=== PATIENT | female | born 1995 | race Caucasian/White ===

== ENCOUNTER → 2020-04-10 11:59 | Outpatient (BNVA) | payer BC, SELFPAY | PROVIDERS: Family Provider Nurse Practitioner Family; PCP Nurse Practitioner Family; Visit Provider Nurse Practitioner Family | DX: J02.9 Acute pharyngitis, unspecified (principal) | CPT/HCPCS: 87880 ==

== ENCOUNTER 2023-05-21 07:49 | Inpatient (IN) | payer BC, MEDICAID, SELFPAY ==
[2023-05-21] VITALS (44 sets, daily range): BP systolic 114–150; BP diastolic 62–94; PULSE 50–96; RESP 16–18; TEMP 35.8–36.9; O2SAT 100; BMI 25.9
[2023-05-21] MEDS: ampicillin 2,000 MG in sodium chloride 0.9% (plus) 50 ML 100 MG IV (08:10)
[2023-05-21] MEDS: dextrose 5%-lactated ringers 1,000 ML 125 ML IV (08:19)
[2023-05-21 08:22] LABS: Basophils # 0.1 10^3/uL (0.0-0.1); Basophils % 0.7 %; Hematocrit 31.3 % (37.0-47.0); Hemoglobin 9.7 g/dL (11.5-15.3); Lymphocytes # 1.9 10^3/uL (0.8-4.8); Lymphocytes % 25.6 %; Mean Corpuscular Hemoglobin 28.6 pg (28.0-34.0); Mean Corpuscular Volume 92.3 fl (81-99); Mean Platelet Volume 13.5 fL (7.4-10.4); Monocytes # 0.7 10^3/uL (0.2-0.9); Monocytes % 8.6 %; Neutrophils # 4.91 10^3/uL (1.8-7.7); Neutrophils % 64.6 %; Nucleated Red Blood Cells % 0 %; Platelet Count 138 10^3/cmm (130-400); Red Blood Count 3.39 10^6/uL (4.1-5.3); Red Cell Distribution Width 13.2 % (12.1-15.1); White Blood Count 7.6 10^3/uL (4.0-10.0)
[2023-05-21] MEDS: ROPivacaine syringe 100 MG/50 ML SYRINGE 10 MG EPIDURAL (08:26)
[2023-05-21] MEDS: ondansetron 2 mg/ML SDV 2 mL 4 MG IVP (08:26)
[2023-05-21] MEDS: lactated ringers 1,000 ML 999 ML IV (08:27)
--- NOTE | 2023-05-21 08:47 | P.ANESASSM_ITS ---
Pre-Anesthetic Assessment Height/Weight: Height 1.68 m Temp Pulse BP 97.0 F L 55 L 114/66 05/21/23 08:27 05/21/23 08:31 05/21/23 08:31 SHANELLE Was Beta Ann taken within 24 hours: N/A Was Clonidine taken within 24 hours: N/A Social No alcohol and No tobacco Exam alert, oriented x 3, clear to auscultation bilaterally and regular rate & rhythm Airway Submandibular: within normal limits Cervical ROM: within normal limits Mallampati: Class II Dentition: full History/ROS No significant history except as noted and No significant complaints Pulmonary None reported CV/HEM None reported None reported Hepatic None reported GI None reported Metabolic None reported Musc/skel None reported Neuropsych None reported Anesthetic Plan ASA status: 2 Anesthesia: Regional (specify below) Other: Had post dural headache with dural blood patch with last delivery/epidural Risk of > 500 ml blood loss (7ml/kg in children): No Medications/Allergies Home Medications Medication Instructions Recorded Confirmed Last Taken Type No Known Home Medications 01/06/22 01/06/22 Unknown History Allergies Allergy/AdvReac Type Severity Reaction Status Date / Time No Known Allergies Allergy Verified 06/11/21 10:38 Current Medications Generic Name Dose Route Start Last Admin Trade Name Freq PRN Reason Stop Dose Admin Dextrose/Lactated Ringer's 1,000 mls @ 125 mls/hr 05/21/23 08:00 05/21/23 08:19 Dextrose 5%-Lactated Ringers IV 125 mls/hr .Q8H SADI Administration Lactated Ringer's 1,000 mls @ 999 mls/hr 05/21/23 08:18 05/21/23 08:27 Lactated Ringers IV 999 mls/hr .Q1H1M PRN Administration See label comments Ropivacaine 100 mg in 50 mls @ 10 mls/hr 05/21/23 08:30 05/21/23 08:26 Naropin Syringe EPIDURAL 10 mls/hr .Q5H SADI Administration Ondansetron HCl 4 mg 05/21/23 07:47 05/21/23 08:26 Ondansetron 2 Mg/Ml Sdv 2 Ml IVP 4 mg Q4H PRN Administration NAUSEA AND VOMITING PFSH Anesthesia Medical History (Updated 01/06/22 @ 10:11 by Liberty Sharif NP) Hx of [place] spotted fever Surgical History No pertinent past surgical history Family History Other No pertinent family history Social History Smoking and tobacco status: never smoked Second hand smoke exposure: No Alcohol intake: never Substance/Drug Use: never Lives independently: Yes Household members: spouse and children Marital status: service: No Current occupational status: employed Current occupation: [employer] Current gender identity: Female Special manohar needs: No Agree to transfusion: Yes Data Anesthesia 05/21/23 08:00 Short CBC 05/21/23 Range/Units 08:00 WBC 7.6 (4.0-10.0) 10^3/uL Hgb 9.7 L (11.5-15.3) g/dL Hct 31.3 L (37.0-47.0) % MCV 92.3 (81-99) fl Plt Count 138 (130-400) 10^3/cmm Neut % (Auto) 64.6 % Neut # (Auto) 4.91 (1.8-7.7) 10^3/uL Cardiac Studies: No Data to Display
--- NOTE | 2023-05-21 09:03 | ANES.PROC ---
Anesthesia Procedures Procedure/Date: 05/21/23 Epidural: Time Out Performed: Yes Consents Signed: Procedure Consent Consent: requested by attending/covering physician, from patient, risks and benefits reviewed and patient agrees to proceed Lumbar Level: L3-L4 Epidural position: sitting Epidural procedure: sterile prep of area, 1% lidocaine to numb the area, 18 g needle, neg for paresthesia, test dose given (5cc), 1.5% xylocaine 1:200k epi, 0.2% Ropivacaine bolus ml (4cc and fentanyl 100mcg), placed PCEA, no systemic response, sterile dressing applied, L.U.D. no apparent complications and 0.2% Ropiavacaine @ mls/hr (10cc/hour) Additional Comments: CINTIA at 6cm. cath placed 2.5 cm into space. Pt tolerated well
[2023-05-21] MEDS: ampicillin 1,000 MG in sodium chloride 0.9% (plus) 50 ML 100 MG IV (10:59)
--- NOTE | 2023-05-21 12:04 | PM.OPHPUD ---
Labor & Delivery H&P Update Date of Procedure: May 21, 2023 Date H&P Performed: 05/18/23 Admission Diagnosis: SROM IUP at 38w 6 days in active labor Group B strep carrier
--- NOTE | 2023-05-21 12:07 | PM.DELIVERY ---
Delivery Note: Date of delivery: May 21, 2023 Estimated blood loss (mL): 150 Pre-Delivery Course: Mother had routine care at [facility]. labs: Blood type A+ antibody negative, hepatitis B nonreactive, hepatitis C nonreactive, HIV nonreactive, rubella immune, GC negative, Chlamydia positive treated, RPR nonreactive, UDS negative, Q bindu low risk, she passed her glucose tolerance test, she was GBS positive. Delivery: This is a 27-year-old at 38 weeks 6 days gestation who presented to labor and delivery complaining of spontaneous rupture of membranes. She was grossly ruptured and in active labor. She was known to be GBS positive and received 2 doses of ampicillin prior to delivery. She did receive an epidural for pain management. Her labor progressed well on its own and she had a normal spontaneous vaginal delivery of a viable female weight 3810 g, 8 pounds 6 ounces, Apgars 8 and 9 over an intact perineum. The infant was suctioned at delivery and placed on the mother's chest. The cord was clamped and cut. The placenta was delivered grossly intact and normal to inspection. There were no lacerations. Mother and infant were doing well after delivery. Coding Level of Care Code Acute Code for Chg Fwd Diagnoses
[2023-05-21] MEDS: lanolin oint 7 gm 1 APPLIC TOPICAL (13:43)
[2023-05-21] MEDS: ibuprofen 800 mg tablet PO ×2 (13:43→20:12)
--- NOTE | 2023-05-21 18:26 | PC.NURSE ---
PT UP TO BATHROOM AND PASSED ABOUT 3CM CLOT, FUNDUS FIRM NO FREEFLOW
[2023-05-21] MEDS: docusate sodium 100 mg Capsule PO (20:13)
[2023-05-22 00:26] LABS: Hematocrit 28.7 % (37.0-47.0); Hemoglobin 9.2 g/dL (11.5-15.3); Mean Corpuscular HGB Conc 32.1 g/dL (30.0-36.0); Mean Corpuscular Hemoglobin 29.7 pg (28.0-34.0); Mean Corpuscular Volume 92.6 fl (81-99); Mean Platelet Volume 12.5 fL (7.4-10.4); Platelet Count 109 10^3/cmm (130-400); Red Cell Distribution Width 13.2 % (12.1-15.1); White Blood Count 9.6 10^3/uL (4.0-10.0)
[2023-05-22 02:20] VITALS: BP 125/66; PULSE 61; RESP 15; TEMP 36.5
[2023-05-22] MEDS: acetaminophen 325 mg Tablet 650 MG PO (04:42)
[2023-05-22 05:11] VITALS: BP 135/85; PULSE 72; RESP 16; TEMP 36.6
--- NOTE | 2023-05-22 08:00 | ANE.PACU2 ---
Inpatient post-anesthesia follow up: Airway intact: Yes Vital signs: Temperature 98 F Pulse Rate 72 Respiratory Rate 16 Blood Pressure 130/78 Pulse Oximetry 98 Oxygen Delivery Me thod Room Air Oxygen Flow Rate Fraction of Inspir ed Oxygen Hydration adequate: Yes Nausea and vomiting: No Pain level: 1 Mental status: Baseline
[2023-05-22] MEDS: prenatal vitamin Capsule 1 CAP PO (08:22)
[2023-05-22] MEDS: ibuprofen 800 mg tablet PO (08:22)
[2023-05-22] MEDS: docusate sodium 100 mg Capsule PO (08:22)
[2023-05-22 09:30] VITALS: BP 131/80; PULSE 78; RESP 16; TEMP 36.6
--- NOTE | 2023-05-22 14:13 | PM.DCS ---
Discharge Providers Date of Admission: 05/21/23 07:49 Date of Discharge: May 22, 2023 Attending Provider at Admission: Elizabeth Nguyen MD Attending Provider at Discharge: Elizabeth Nguyen MD Primary Care Provider: Elizabeth Nguyen MD Reason for Visit Reason for Visit: Possible ruptue of membranes Hospital Course Hospital Course This is a 27-year-old G3 now P3 who was admitted in active labor with spontaneous rupture of membranes at 38 weeks 6 days gestation. She delivered a healthy viable female infant weight 8 pounds 6 ounces. Mother has done well after delivery. She is ambulating, tolerating a regular diet, has decreased vaginal bleeding and is comfortable with discharge home. Physical Exam Narrative: Alert and oriented, sitting up in bed, heart regular rate and rhythm, lungs clear to auscultation bilaterally, abdomen is soft and nontender, fundus is firm and U -3, extremities have no edema and no calf tenderness Urinary Catheter Management: [place]: Cath Placed During This Visit: yes Urinary Catheter Date of Insertion: 05/21/23 Urinary Catheter Time of Insertion: 09:20 Discharge Data Studies Completed and Pending Laboratory Results WBC 9.6 10^3/uL (4.0-10.0) 05/22/23 00:11 RBC 3.10 10^6/uL (4.1-5.3) L 05/22/23 00:11 Hgb 9.2 g/dL (11.5-15.3) L 05/22/23 00:11 Hct 28.7 % (37.0-47.0) L 05/22/23 00:11 MCV 92.6 fl (81-99) 05/22/23 00:11 MCH 29.7 pg (28.0-34.0) 05/22/23 00:11 MCHC 32.1 g/dL (30.0-36.0) 05/22/23 00:11 RDW 13.2 % (12.1-15.1) 05/22/23 00:11 Plt Count 109 10^3/cmm (130-400) L 05/22/23 00:11 MPV 12.5 fL (7.4-10.4) H 05/22/23 00:11 Neut % (Auto) 64.6 % 05/21/23 08:00 Lymph % (Auto) 25.6 % 05/21/23 08:00 [place] % (Auto) 8.6 % 05/21/23 08:00 Eos % (Auto) 0.0 % 05/21/23 08:00 Baso % (Auto) 0.7 % 05/21/23 08:00 Neut # (Auto) 4.91 10^3/uL (1.8-7.7) 05/21/23 08:00 Lymph # (Auto) 1.9 10^3/uL (0.8-4.8) 05/21/23 08:00 [place] # (Auto) 0.7 10^3/uL (0.2-0.9) 05/21/23 08:00 Eos # (Auto) 0.0 10^3/uL (0.0-0.8) 05/21/23 08:00 Baso # (Auto) 0.1 10^3/uL (0.0-0.1) 05/21/23 08:00 Nucleated RBC % (auto) 0 % 05/21/23 08:00 Nucleated RBCs # 0.0 /100WBC 05/21/23 08:00 Vitals Last Vital Signs Temp 97.9 F 05/22/23 09:30 Pulse 78 05/22/23 09:30 Resp 16 05/22/23 09:30 BP 131/80 05/22/23 09:30 Pulse Ox 100 05/21/23 09:10 O2 Del Method Room Air 05/22/23 09:30 Discharge Plan Discharge Patient Disposition: Home Condition: Stable Prescriptions: Continued PNV comb no.58-iron bisgly-FA 10-400 mg-mcg Capsule PO Discharge Orders: Discharge Order (Routine); Ordered 05/22/23 Ordered By: Elizabeth Nguyen Referrals: Elizabeth Nguyen MD [Primary Care Provider] - 1 month Discharge Diet: Usual diet Discharge Activity: Limit activity as instructed Patient Instructions: Depression (DC), Bleeding (DC), Preeclampsia and Eclampsia After Delivery (GEN), Hemorrhage (DC), OB Discharge Report, OB Food/Drug Interaction Guide, OB Care at Home, Opioid Safety, OB Home Care, OB Vaginal Deliveries Discharge Attestations Time Spent in Discharge Care*: less than 30 min Quality Metrics Clinical Quality Measures [ No reported AMI, CVA or VTE this stay] Coding Level of Care Code Acute Code for Chg Fwd Diagnoses
[2023-05-22 15:15] VITALS: BP 130/78; PULSE 72; RESP 16; TEMP 36.6; O2SAT 98
[2023-06-11 09:52] VITALS: BP 143/84; PULSE 77
[2023-06-11 17:49] VITALS: BP 137/80; PULSE 76
[2023-06-25 02:22] VITALS: BP 130/74; PULSE 69
[2023-06-25 02:37] VITALS: BP 119/62; PULSE 62
[2023-06-25 02:52] VITALS: BP 121/73; PULSE 63
[2023-06-25 03:07] VITALS: BP 121/73; PULSE 64
[2023-06-25 03:22] VITALS: BP 119/65; PULSE 63
== END 2023-05-22 15:15 | disposition home or self-care (01) | DRG 807 ==
LOC: OBGYN 07:54 → OPOB 05-23 07:56
PROVIDERS: Admitting Provider Family Medicine; PCP Family Medicine; Visit Provider Family Medicine
DX: O99.824 Streptococcus B carrier state complicating childbirth (principal); Z37.0 Single live birth; Z3A.38 38 weeks gestation of pregnancy
CPT/HCPCS: 36415; 51702; 59025; 59409; 83986; 85025; 85027; 87491; 87591; 96374; 96375; 96376; 99211; J0290; J2405; J2795; J3010; J7120; J7121

== ENCOUNTER → 2024-11-23 07:54 | Outpatient (BNVA) | payer MEDICAID, SELFPAY | PROVIDERS: PCP Family Medicine; Visit Provider Physician Assistant | DX: M25.531 Pain in right wrist (principal); M25.532 Pain in left wrist; S63.501A Unspecified sprain of right wrist, initial encounter; S63.502A Unspecified sprain of left wrist, initial encounter; X58.XXXA Exposure to other specified factors, initial encounter | CPT/HCPCS: 73110 ==

== ENCOUNTER 2024-11-23 08:39 | Outpatient (CLI) | payer MEDICAID, SELFPAY | END 2024-11-23 08:40 | disposition home or self-care (01) | LOC: SPT 08:41 | PROVIDERS: PCP Family Medicine; Visit Provider Physician Assistant | DX: Z46.89 Encounter for fitting and adjustment of other specified devices (principal); M25.531 Pain in right wrist | CPT/HCPCS: L3908 ==